=== PATIENT | female | born 1960 | race Caucasian/White ===

== ENCOUNTER 2019-02-20 00:26 | Outpatient (CLI) | payer BC, SELFPAY ==
--- NOTE | 2019-02-20 15:15 | DI.MAMMO_ITS ---
SYMPTOMS/DIAGNOSIS: SCREENING, Z12.39 MAMMOGRAMS: Mammograms were interpreted according to the usual protocol including computer analysis with CAD system, tomosynthesis and C view imaging. The breasts are of moderate density with fairly symmetrical distribution of fibroglandular tissue. No dominant mass or clumped microcalcification is identified in either breast. Current examination is compared with previous examinations including January 2017 and there is a question of increased prominence of a focal area of asymmetric density in the upper outer quadrant of the left breast seen on CC and MLO views. The possibility of an early developing mass or architectural distortion is raised. Additional mammographic views of the left breast requested including CC and MLO spot compression views. Breast ultrasound is also recommended. CONCLUSION: Additional mammographic views of the left breast and left breast ultrasound requested as described above. Category 0, breast density category B. MQSA ASSESSMENT OF FINDINGS: Incomplete: Needs additional imaging evaluation. Category 0. Patient will receive a letter notifying them of these results. BI-RADS category B. There are scattered areas of fibroglandular density.
== END 2019-02-20 00:46 ==
PROVIDERS: PCP Nurse Practitioner; Visit Provider Nurse Practitioner
DX: Z12.31 Encounter for screening mammogram for malignant neoplasm of breast (principal); R92.8 Other abnormal and inconclusive findings on diagnostic imaging of breast
CPT/HCPCS: 77063; 77067

== ENCOUNTER 2019-02-28 00:23 | Outpatient (CLI) | payer BC, SELFPAY ==
--- NOTE | 2019-02-28 15:10 | DI.COMBO_ITS ---
SYMPTOMS/DIAGNOSIS: F/U ABNORMAL MAMMO, ? INCREASED PROMINENCE OF ASYMMETRIC DENSITY IN UPPER OUTER QUADRANT OF LEFT BREAST, ? EARLY DEVELOPING MASS OR ARCHITECTURAL DISTORTION ADDITIONAL MAMMOGRAPHIC VIEWS, LEFT BREAST, AND LEFT BREAST ULTRASOUND: Additional mammographic views of the left breast and the left breast ultrasound are interpreted in conjunction. These examinations were obtained to evaluate a questionable area of asymmetric density in the upper outer quadrant of the left breast. Additional mammographic views fail to show a discrete mass. Breast ultrasound shows no evidence of mass or cyst. A couple of nonspecific dilated intramammary ducts are noted in the central portion of the breast. CONCLUSION: No specific evidence of malignancy at this time. Follow-up unilateral left breast mammogram recommended in six months. Category 3, breast density category B. MQSA ASSESSMENT OF FINDINGS: Probably benign. Six month follow-up recommended. Category 3. Patient will receive a letter notifying them of these results. BI-RADS category B. There are scattered areas of fibroglandular density.
== END 2019-02-28 00:43 ==
PROVIDERS: PCP Nurse Practitioner; Visit Provider Nurse Practitioner
DX: Z12.31 Encounter for screening mammogram for malignant neoplasm of breast (principal); R92.8 Other abnormal and inconclusive findings on diagnostic imaging of breast; N60.42 Mammary duct ectasia of left breast
CPT/HCPCS: 76642; 77063; 77067

== ENCOUNTER 2019-09-03 01:14 | Outpatient (CLI) | payer BC, SELFPAY ==
--- NOTE | 2019-09-03 14:52 | DI.MAMMO_ITS ---
EXAM: MG MAMMO DIAGNOSTIC UNI CLINICAL HISTORY: DIAGNOSTIC, F/U ABNL MAMMO, 6 MO F/U TECHNIQUE: Mammograms were interpreted according to the usual protocol including computer analysis w [employer] CAD system, tomosynthesis and C-view imaging. COMPARISON: 2008 through February,. FINDINGS: The breasts are composed of heterogeneously dense fibroglandular densities, Breast Density category C . No suspicious masses or suspicious microcalcifications are seen. No skin thickening or abnormal axillary lymph nodes are seen. Dense tissue is again noted in the upper outer quadrant. No mass is identified. IMPRESSION: BIRADS Category 1, negative mammogram. Yearly screening mammography is recommended. BREAST DENSITY: The mammogram demonstrates the patient's breast tissue is dense. Dense breast tissue is very common and is not abnormal but dense breast tissue can make it harder to find cancer on a ma mmogram. Also, dense breast tissue may increase their breast cancer risk. This information about the result of the mammogram report was provided to the patient to raise their awareness. Use this report when you speak with the patient about their risks for breast cancer, which includes their family hist ory. At that time, you may recommend for more screening tests (Ultrasound or MRI) as they might be us eful based on their risk. A negative radiographic report should not delay biopsy if a dominant or clinically suspicious mass is present. Up to ten percent of cancers are not identified on mammography. A negative report may reinforce clinical impression. Adenosis and dense breasts may obscure an underlying neoplasm. False positive reports average 6 to 10%.
== END 2019-09-03 01:34 ==
PROVIDERS: PCP Nurse Practitioner; Visit Provider Nurse Practitioner
DX: Z12.31 Encounter for screening mammogram for malignant neoplasm of breast (principal); R92.8 Other abnormal and inconclusive findings on diagnostic imaging of breast; N64.59 Other signs and symptoms in breast
CPT/HCPCS: 77061; 77065; G0279

== ENCOUNTER 2024-11-11 03:07 | Outpatient (CLI) | payer BC, SELFPAY ==
[2024-11-11 12:17] LABS: Abs Immature Grans 0.01 10^3/uL (0.0-0.06); Absolute Basophil Count 0.02 10^3/uL (0.0-0.2); Absolute Eosinophil Count 0.14 10^3/uL (0.0-0.7); Absolute Lymphocyte Count 2.15 10^3/uL (1.2-3.4); Absolute Monocyte Count 0.44 10^3/uL (0.1-0.8); Basophils % 0.3 %; Eosinophils % 2.1 %; HCT 46.9 % (36.0-46.0); HGB 15.6 g/dL (11.2-15.7); Immature Grans % 0.1 %; Lymphocytes % 31.8 %; MCH 30.2 pg (27.0-33.0); MCHC 33.3 % (32.0-36.0); MCV 91 fL (80-95); MPV 9.1 fL (8.0-11.0); Monocytes % 6.5 %; Neutrophils % 59.2 %; Platelet Count 295 10^3/uL (130-400); RBC 5.17 10^6/uL (3.93-5.22); RDW 12.7 % (11.7-14.6); RDW-SD 42.3 fL; WBC 6.76 10^3/uL (4.4-10.8)
[2024-11-11 13:14] LABS: ALT 30 U/L (14-59); AST 25 U/L (15-37); Albumin 3.9 g/dL (3.4-5.0); Alkaline Phosphatase 110 U/L (46-116); BUN 11 mg/dL (7-18); Bilirubin, Total 0.48 mg/dL (0.2-1.0); CREATININE 0.7 mg/dL (0.55-1.02); Calcium 9.4 mg/dL (8.5-10.1); Calculated LDL 108 mg/dL (<100); Chloride 107 mmol/L (98-107); Cholesterol 195 mg/dL (<200); Estimated GFR 96.52 (mL/min/1.73m2); Glucose 105 mg/dL (74-106); HDL Cholesterol 74 mg/dL (40-60); Potassium 4.3 mmol/L (3.5-5.1); Sodium 146 mmol/L (136-145); Total Protein 7.7 g/dL (6.4-8.2); Triglyceride 65 mg/dL (<150)
[2024-11-11 22:50] LABS: HIV-1/2 Ag & Ab Screen Negative (Negative)
[2024-11-11 22:54] LABS: Hepatitis C Ab w Rflx HCV PCR Negative (Negative)
== END 2024-11-11 03:08 | disposition home or self-care (01) ==
LOC: LBO 03:07
PROVIDERS: PCP Nurse Practitioner; Visit Provider Nurse Practitioner
DX: E78.5 Hyperlipidemia, unspecified (principal); Z11.59 Encounter for screening for other viral diseases
CPT/HCPCS: 36415; 80053; 80061; 86803; 87389; 85025

== ENCOUNTER 2024-11-20 02:14 | Outpatient (CLI) | payer BC, SELFPAY ==
--- NOTE | 2024-11-20 06:46 | DI.MAMMO_ITS ---
Exam(s) MAMMO SCREENING EXAM: MAMMO SCREENING CLINICAL HISTORY: screening,z12.39 TECHNIQUE: Bilateral full field digital CC and MLO mammographic images were obtained with 3D tomosyn thesis and utilizing computer aided detection (CAD). COMPARISON: Available for comparison. FINDINGS: Masses/Architectural Distortion: There is a question of an area of architectural distortion in the up per central right breast on the mediolateral oblique view 8 cm from the nipple. Microcalcifications: No suspicious pleomorphic-type are seen. Skin Thickening/Nipple Retraction: None. IMPRESSION: 1. Question of an area of architectural distortion in the upper central right breast on the MLO view. 2. This area should be further evaluated with a spot compression view. Targeted right breast ultraso und may be indicated at that time. BI-RADS Category 0 - Incomplete: Need additional imaging evaluation Breast Density - Category C - Heterogeneously dense Breast density category C or D implies that the patient has dense breast tissue. Dense breast tissue is very common and is not abnormal but dense breast tissue can make it harder to find cancer on a ma mmogram. Also, dense breast tissue may increase their breast cancer risk. This information about the result of the mammogram report was provided to the patient to raise their awareness. Use this report when you speak with the patient about their risks for breast cancer, which includes their family hist ory. At that time, you may recommend for more screening tests (Ultrasound or MRI) as they might be us eful based on their risk. A negative radiographic report should not delay biopsy if a dominant or clinically suspicious mass is present. Up to ten percent of cancers are not identified on mammography. A negative report may reinforce clinical impression. Adenosis and dense breasts may obscure an underlying neoplasm. False positive reports average 6 to 10%. Patient will receive a letter notifying them of these results.
== END 2024-11-20 02:34 ==
PROVIDERS: PCP Nurse Practitioner; Visit Provider Nurse Practitioner
DX: Z12.31 Encounter for screening mammogram for malignant neoplasm of breast (principal); R92.333 Mammographic heterogeneous density, bilateral breasts
CPT/HCPCS: 77063; 77067

== ENCOUNTER 2024-12-04 00:43 | Outpatient (CLI) | payer BC, SELFPAY ==
--- NOTE | 2024-12-04 | DI.US_ITS ---
Exam(s) MG MAMMO SCREEN CALL BACK UNI US BREAST RT COMPLETE EXAM: MG MAMMO SCREEN CALL BACK UNI RIGHT AND COMPLETE RIGHT BREAST ULTRASOUND CLINICAL HISTORY: R92.8 Abn mammo, ? area architectural distortion Upper Central RT Breast. TECHNIQUE: Unilateral spot mammographic images obtained with 3D tomosynthesisand utilizing computer aided detection (CAD). . Complete RIGHT breast Ultrasound was also performed, including all 4 quadrants, the retroareolar andrei on, and the ipsilateral axilla. COMPARISON: Prior mammograms were reviewed. This additional imaging was performed due to findings described on the recent screening mammogram of 11/20/2024. FINDINGS: DIAGNOSTIC RIGHT BREAST MAMMOGRAM: Additional mammographic views performed todayrender this area less concerning. COMPLETE RIGHT BREAST ULTRASOUND: Ultrasound performed today reveals no evidence of solid or significant cystic lesions in all 4 quadra nts.. Scanning of the ipsilateral axilla reveals no significant adenopathy. IMPRESSION: 1. No radiographic evidence of malignancy in the right breast. 2. Negative complete right breast ultrasound Appropriate follow-up is to keep this patient on a yearly mammogram schedule. The patient was informed of these findings and recommendations myself prior to leaving the department today. BI-RADS Category 2 - Benign Findings Breast Density - Category B - Scattered areas of fibroglandular density Breast density Category C or D implies that the patient has dense breast tissue. Dense breast tissue can make it harder to find cancer on a mammogram. Dense breast tissue is also associated with an incr eased risk of breast cancer. This information about the result of the mammogram report was provided to the patient to raise their awareness. Use this report when you speak with the patient about their risks for breast cancer, which includes their family history. At that time, you may recommend additional screening tests (Ultrasoun d or MRI) as these tests may add significant information. A negative radiographic report should not delay biopsy if a dominant or clinically suspicious mass is present. Up to ten percent of cancers are not identified on mammography. A negative report may reinforce clinical impression. Adenosis and dense breasts may obscure an underlying neoplasm. False positive reports average 6 to 10%. Patient will receive a letter notifying them of these results.
== END 2024-12-04 01:03 ==
LOC: DI 00:43
PROVIDERS: PCP Nurse Practitioner; Visit Provider Nurse Practitioner
DX: R92.8 Other abnormal and inconclusive findings on diagnostic imaging of breast (principal); Z12.31 Encounter for screening mammogram for malignant neoplasm of breast; R92.323 Mammographic fibroglandular density, bilateral breasts; D24.1 Benign neoplasm of right breast
CPT/HCPCS: 76642; 77063; 77067

== ENCOUNTER 2024-12-05 14:35 | Outpatient (REF) | payer BC, SELFPAY ==
--- NOTE | 2024-12-05 15:40 | PAPFT_PTH ---
PATIENT: Lupis Swain LOC: [facility] U#:[id number] AGE/SX: 64/F ROOM: RE12/05/[address]: Suma Moser DO : 1960 BED: DIS: 12/05/2024 SPEC #: [id number] RECD: 12/06/24 13:00 STATUS: IRENE REPennie #: [id number] ANH: 12/05/24 15:[address]: Suma Moser DEPT: [facility] Cytology RECD BY: Pari Boyle ENTERED: 12/06/24 13:00 SP TYPE: PAPFT OTHR DR: Leda Silverman APRN Tissues: 1 - CX/ENDOCX FOR PAP SMEARS Procedures: PAP THIN PREP/UVM Screening HPV DNA PROBE Comments: [id number] (HPV 16 & 18/45)
== END 2024-12-05 14:36 | disposition home or self-care (01) ==
LOC: LBN 14:35
PROVIDERS: PCP Nurse Practitioner; Visit Provider Obstetrics & Gynecology
DX: Z01.419 Encounter for gynecological examination (general) (routine) without abnormal findings (principal); Z87.410 Personal history of cervical dysplasia
CPT/HCPCS: 88142; 87624

== ENCOUNTER 2025-05-09 07:00 | Day surgery (SDC) | payer BC, SELFPAY ==
--- NOTE | 2025-05-08 22:00 | W.PM.DSUDISC ---
Date of service: 05/08/25 Discharge Plan Disposition Patient Disposition: Home Condition: Good Discharge Details Reason For Visit: screening colonoscopy Attending Provider: Pedro Beebe Primary Care Provider: Leda Silverman Home Meds and New Rx's Prescriptions: Continued loratadine [Claritin] 10 mg tablet 10 mg PO DAILY cholecalciferol (vitamin D3) PO DAILY naproxen sodium [Aleve] 220 mg capsule 220 mg PO BID PRN (Reason: Arthritis) Discontinued bisacodyl [Dulcolax (bisacodyl)] 5 mg tablet,delayed release (DR/EC) 5 mg PO ONCE Qty: 4 0RF Rx Instructions: Take per colonoscopy instructions provided by ordering providers office polyethylene glycol 3350 17 gram/dose powder 17 g PO ONCE Qty: 238 0RF Rx Instructions: Take per colonoscopy instructions provided by ordering providers office Discharge Instructions Instructions: Colon polyps Additional Instructions: Jacey, it was very nice meeting you today, and I hope you feel well after the procedure. I did find polyps in your rectum that I suspect are the source of your positive Cologuard test. I removed these polyps, and I will send them off to the pathologist for the review. Colon polyp, different types, and we use the information regarding the nature of the polyp to inform the timing of future colonoscopies. Those results will take a week or 2 to get back, but once my office has that information, we will be in touch. These polyps are quite low to your anus, and I would not be surprised if you experience some bleeding over the next few bowel movements. That should resolve in about 48 to 72 hours. I do not suspect that this will be very painful, but if it does I recommend some Tylenol and ibuprofen to help with the discomfort. Hemorrhoidal cream or pads might also provide some relief. If you need anything at all, please do not hesitate to call, otherwise we will be in touch once the results are available. 1. If tolerated, consume a soft, low fiber diet for 1-2 days. 2[address] Do not drive, drink alcohol, operate machinery, make critical decisions, or do activities that require coordination or balance for 24 hours. 3. Because air was put into your colon during the procedure, expelling air from your rectum (passing gas or farting) is normal. 4. You may not have a bowel movement for 1-3 days because of the colonoscopy prep. This is normal. 5. Go directly to the emergency room if you notice any of the following: Develop chills (warm to touch), or if you have a thermometer and your temperature is above 101 Difficulty breathing or difficultly swallowing Persistent vomiting Severe abdominal pain, other than gas cramps Severe chest pain Black, tarry stools Any bleeding ? exceeding one tablespoon 6. Call your physician if the site where your intravenous was started becomes red, swollen, painful, and warm to touch. 7. Your physician has reviewed your pre-procedure medications. Please continue to take those medications as previously ordered. You will be given specific information/education regarding any changes to your medications before leaving. Activity:: Activity as Tolerated Diet:: As Tolerated Discharge Orders Discharge Orders: Discharge Order (Routine); Ordered 05/08/25 Ordered By: Pedro Beebe DS: Diagnosis Discharge Diagnosis (1) Positive colorectal cancer screening using Cologuard test: Status: Acute Asessment and Plan: Follow-up with polypectomy results
--- NOTE | 2025-05-08 22:02 | W.COLOREPORT ---
Date of service: 05/09/25 Time of Service: 10:01 Colonoscopy Report Date of procedure: 05/09/25 Pre-op diagnosis general: screening colonoscopy Post-op diagnosis procedure note: other (Rectal polyps) Procedure: colonoscopy with polypectomy Surgeon: Pedro Beebe Anesthesia Type: General:No Airway Estimated blood loss (mL): 5 Pathology: other (0.25 cm rectal polyps) Complications: None Disposition: same day Indications: Lupis is a 64 year old woman who had a positive cologuard test. She needs a follow up screening colonoscopy Prep: Miralax/Dulcolax Procedure Start Time: 09:14 Procedure End Time: 09:42 Retraction Time: 18 Findings: 0.25 cm rectal polyps Procedure Description: After the induction of anesthesia, and with the patient in left lateral decubitus position, I began by performing an external anorectal exam.? Perineum and skin were normal, as was the anal verge.? T there are external hemorrhoids.? Next, I performed a digital rectal exam.? I did not appreciate any abnormal findings.? Next, I advanced a colonoscope into the rectal vault.? I performed retroflexion.? This appeared normal.? But there are several subcentimeter polyps in the distal rectum. Narrowband imaging was used to help with analysis. Generally, these appeared consistent with hyperplastic polyps. I did perform cold forcep polypectomy of the largest of these, which are still well less than 0.25 cm. These were all flat. There was minimal bleeding from the polypectomy sites. Using insufflation, I then advanced the colonoscope beyond the rectal folds and into the sigmoid colon before advancing towards the cecum.? The quality of the prep was adequate.? The scope was noted to be in the cecum by identification of the ileocecal valve and appendiceal orifice.? I then began withdrawing the colonoscope using repeated irrigation as necessary for full evaluation of the colonic mucosa. No other pathology was appreciated. once the scope was withdrawn to the level of the rectum, great care was taken to examine portions of the rectal folds.? Finally, the scope was withdrawn and the patient was brought to the same-day surgery recovery unit as the anesthetic wore off. ?The findings and instructions were shared with the patient prior to discharge. [place] Bowel Prep [place] Bowel Prep Right Colon: 2 Left Colon: 2 Transverse Colon: 3 Total Score: 7
[2025-05-09 07:31] VITALS: BP 117/81; PULSE 94; RESP 18; TEMP 36.6; O2SAT 97
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
[2025-05-09 08:11] VITALS: BMI 25.4
[2025-05-09] MEDS: Lactated Ringers 1,000 ML 80 ML IV (08:14)
--- NOTE | 2025-05-09 09:16 | BOWEL_PTH ---
PATIENT: Lupis Swain LOC: [facility] U#:[id number] AGE/SX: 64/F ROOM: RE05/09/[address]: Pedro Beebe MD : 1960 BED: DIS: 05/09/2025 SPEC #: [id number] RECD: 05/09/25 12:44 STATUS: IRENE RE #: [id number] ANH: 05/09/25 09:[address]: Pedro Beebe DEPT: Surgical Specimen RECD BY: Pari Boyle ENTERED: 05/09/25 12:45 SP TYPE: Bowel OTHR DR: Leda Silverman APRN Tissues: 1 - BIOPSY BOWEL Procedures: GROSS AND MICRO LEVEL 4 Comments: [id number]
[2025-05-09 09:49] VITALS: BP 108/92; PULSE 91; RESP 20; TEMP 36.6; O2SAT 99
--- NOTE | 2025-05-09 10:02 | W.ANESPOSTOP ---
Postoperative Evaluation Date, Time and Location Date Performed: 05/09/25 Time Performed: 09:49 Patient Location: Day Surgery Unit Vital Signs Most Recent Imported Vital Signs: Most Recent Vital Signs Temp Pulse Resp BP Pulse Ox 36.6 C 91 H 20 108/92 H 99 05/09/25 09:49 05/09/25 09:49 05/09/25 09:49 05/09/25 09:49 05/09/25 09:49 Assessment Mental Status: Awake (Alert & Oriented to Patient Baseline) Airway and Respiratory Function: Patent airway with normal (patient baseline) respiratory exam Cardiovascular Function: Hemodynamically Stable Hydration Status: Adequately Hydrated Nausea & Vomiting: No Nausea or Vomiting Pain: Pt. Denies Any Pain Peripheral Nerve Block: Patient did not receive a nerve block
[2025-05-09 10:10] VITALS: BP 130/83; PULSE 77; RESP 20; TEMP 36.5; O2SAT 99
== END 2025-05-09 10:35 | disposition home or self-care (01) ==
LOC: SUR 07:01
PROVIDERS: PCP Nurse Practitioner; Visit Provider Surgery
PROC: 0DJD8ZZ Inspection of Lower Intestinal Tract, Via Natural or Artificial Opening Endoscopic (ICD-10-PCS; CPT 45378; principal; 2025-05-09 09:00)
DX: Z12.11 Encounter for screening for malignant neoplasm of colon (principal); K62.1 Rectal polyp
CPT/HCPCS: 45380; 88305; J2003; J2371; J2704